=== PATIENT | male | born 1990 | race Caucasian/White ===

== ENCOUNTER 2017-11-28 10:56 | Emergency (ER) | payer SELFPAY ==
[~2017-11-28] VITALS: Ht 172.7 cm; Wt 73.9 kg
[2017-11-28] MEDS ORDERED: ONDANSETRON 2MG/ML, 2ML ONE (12:28)
[2017-11-28] MEDS ORDERED: FAMOTIDINE 20 MG/2 ML ONE (12:28)
[2017-11-28] MEDS ORDERED: SODIUM CHLORIDE 0.9% 1,000ML IVBOLUS ONE (12:30)
[2017-11-28] MEDS ORDERED: SODIUM CHLORIDE FLUSH 10ML SYR IVF ONE (12:30)
[2017-11-28] MEDS ORDERED: FAMOTIDINE 20 MG/2 ML IVP ONE (12:30)
[2017-11-28] MEDS ORDERED: ONDANSETRON 2MG/ML, 2ML IVPush ONE (12:30)
[2017-11-28] MEDS ORDERED: DICYCLOMINE 20 MG TABLET PO ONE (12:30)
[2017-11-28 12:37] LABS: BASOPHILS # (AUTO) 0.03 x10^3/uL (0-0.1); BASOPHILS % (AUTO) 0 % (0-1); EOSINOPHILS # (AUTO) 0.09 x10^3/uL (0-0.4); EOSINOPHILS % (AUTO) 1 % (1-7); LYMPHOCYTES # (AUTO) 1.37 x10^3/uL (1-3.4); LYMPHOCYTES % (AUTO) 17 % (22-44); MD NO; MEAN CORPUSCULAR HGB CONC 33.7 g/dL (33.2-36.2); MEAN CORPUSCULAR VOLUME 89.1 fL (81-97); MEAN PLATELET VOLUME 8.4 fL (7.4-10.4); MONOCYTES # (AUTO) 0.44 x10^3/uL (0.2-0.8); MONOCYTES % (AUTO) 6 % (2-9); NEUTROPHILS % (AUTO) 76 % (42-75); PLATELET COUNT 159 x10^3/uL (130-400); RED BLOOD COUNT 5.98 x10^6/uL (4.38-5.82); RED CELL DISTRIBUTION WIDTH 12.7 % (9.4-14.8)
[2017-11-28 12:47] LABS: ALANINE AMINOTRANSFERASE 40 U/L (12-78); ALBUMIN 3.9 g/dL (3.4-5.0); ANION GAP 9 mmol/L (5-15); CALCIUM 8.7 mg/dL (8.5-10.1); CHLORIDE 108 mmol/L (98-107); CREATININE 0.87 mg/dL (0.7-1.3)
[2017-11-28 12:49] LABS: ALKALINE PHOSPHATASE 57 U/L (45-117); BILIRUBIN,TOTAL 0.4 mg/dL (0.2-1.0); TOTAL PROTEIN 7.7 g/dL (6.4-8.2)
[2017-11-28 13:39] VITALS: BP 130/85
== END 2017-11-28 13:41 | disposition home or self-care (01) ==
LOC: ED 13:35
DX: K52.9 Noninfective gastroenteritis and colitis, unspecified (principal); F17.200 Nicotine dependence, unspecified, uncomplicated
CPT/HCPCS: 36415; 80053; 83690; 85025; 96361; 96374; 96375; 99284; J2405; J7030; S0028

== ENCOUNTER 2018-04-27 11:52 | Emergency (ER) | payer SELFPAY ==
[~2018-04-27] VITALS: Ht 172.7 cm; Wt 73.4 kg
[2018-04-27 11:56] VITALS: BP 127/84
[2018-04-27] MEDS ORDERED: AZITHROMYCIN 500 MG TABLET PO ONE (12:30)
[2018-04-27] MEDS ORDERED: CEFTRIAXONE 250 MG IM ONE (12:30)
[2018-04-27] MEDS ORDERED: CEFTRIAXONE 250 MG ONE (12:37)
[2018-04-27] MEDS ORDERED: LIDOCAINE-MPF 1%, 2ML ONE ×3 (12:38→12:49)
[2018-04-27] MEDS ORDERED: LIDOCAINE-MPF 2% ,5ML ONE (12:43)
[2018-04-27] MEDS ORDERED: AZITHROMYCIN 250 MG TABLET ONE (12:47)
[2018-04-27] MEDS ORDERED: LIDOCAINE 1%, 2ML INFIL ONE (13:30)
[2018-04-27 14:11] LABS: MICROSCOPIC NOT IND
[2018-04-27 14:24] LABS: CULTURE INDICATED? NO
== END 2018-04-27 14:37 | disposition home or self-care (01) ==
LOC: ED 14:20
DX: A59.9 Trichomoniasis, unspecified (principal); Z20.2 Contact with and (suspected) exposure to infections with a predominantly sexual mode of transmission
CPT/HCPCS: 81003; 87491; 87591; 96372; 99284; J0696; J3490